=== PATIENT | male | born 1955 | race Caucasian/White ===

== ENCOUNTER 2016-10-28 09:20 | Emergency (ER) | payer MEDICARE, OTHER ==
[2016-10-28] MEDS ORDERED: Sodium Chloride 0.9% 5 ML Syringe FLUSH PRN (10:00)
[2016-10-28] MEDS: Sodium Chloride 0.9% 1,000 ML IV ONE (10:20)
[2016-10-28] MEDS: Metoclopramide 10 MG/2 ML SDV IVPUSH ONE (10:20)
[2016-10-28] MEDS: Dexamethasone 4 MG/ML SDV IVPUSH ONE (10:25)
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
[2016-10-28 12:06] VITALS: BP 131/82
== END 2016-10-28 12:00 | disposition home or self-care (01) ==
LOC: KA.ED 09:20
DX: S06.0X0A Concussion without loss of consciousness, initial encounter (principal); E11.9 Type 2 diabetes mellitus without complications; F41.9 Anxiety disorder, unspecified; F32.9 Major depressive disorder, single episode, unspecified; F17.210 Nicotine dependence, cigarettes, uncomplicated; Z79.899 Other long term (current) drug therapy; X58.XXXA Exposure to other specified factors, initial encounter
CPT/HCPCS: 82962; 96361; 96374; 96375; 99284; J1100; J2765; J7030

== ENCOUNTER 2016-11-06 11:53 | Emergency (ER) | payer MEDICARE, OTHER ==
[2016-11-06 12:04] VITALS: BP 160/101
[2016-11-06] MEDS ORDERED: Ketorolac 60 MG/2 ML SDV IM ONE (12:41)
[2016-11-06] MEDS ORDERED: methylPREDNISolone Sodium Succinate 125 MG/2 ML SDV IVPUSH ONE (12:41)
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
[2016-11-06] MEDS ORDERED: methylPREDNISolone Sodium Succinate 125 MG/2 ML SDV IM ONE (13:01)
== END 2016-11-06 13:15 | disposition home or self-care (01) ==
LOC: KA.ED 11:53
DX: M54.2 Cervicalgia (principal); M54.5 Low back pain; R01.1 Cardiac murmur, unspecified; E78.00 Pure hypercholesterolemia, unspecified; I10 Essential (primary) hypertension; M19.90 Unspecified osteoarthritis, unspecified site; F41.9 Anxiety disorder, unspecified; F32.9 Major depressive disorder, single episode, unspecified; F17.210 Nicotine dependence, cigarettes, uncomplicated; Z79.84 Long term (current) use of oral hypoglycemic drugs; Z79.899 Other long term (current) drug therapy
CPT/HCPCS: 72100; 72141; 96372; 99283; J1885; J2930